=== PATIENT | male | born 1985 | race Caucasian/White ===

== ENCOUNTER 2023-02-02 10:56 | Inpatient (IN) | payer MEDICAID ==
[~2023-02-02] VITALS: Ht 175.3 cm; Wt 88.9 kg
[2023-02-02 11:41] LABS: BASOPHILS # (AUTO) 0.1 X10'3 (0-0.2); BASOPHILS % (AUTO) 0.6 % (0-1); EOSINOPHILS # (AUTO) 0.1 X10'3 (0-0.9); EOSINOPHILS % (AUTO) 0.4 % (0-6); HEMATOCRIT 43.2 % (42.0-52.0); HEMOGLOBIN 14.7 g/dl (14.0-17.9); LYMPHOCYTES # (AUTO) 1.3 X10'3 (1.1-4.8); LYMPHOCYTES % (AUTO) 8.8 % (21-51); MEAN CORPUSCULAR HEMOGLOBIN 31.8 PG (27.0-31.0); MEAN CORPUSCULAR VOLUME 93.6 FL (78-98); MEAN PLATELET VOLUME 6.9 FL (7.4-10.4); MONOCYTES # (AUTO) 0.7 X10'3 (0-0.9); MONOCYTES % (AUTO) 4.8 % (2-12); NEUTROPHILS # (AUTO) 12.1 X10'3 (1.8-7.7); NEUTROPHILS % (AUTO) 85.4 % (42-75); PLATELET COUNT 486 X10'3 (140-440); RED BLOOD COUNT 4.62 X10'6 (4.70-6.10); RED CELL DISTRIBUTION WIDTH 13.5 % (11.5-14.5); WHITE BLOOD COUNT 14.2 X10'3 (4.5-11.0)
[2023-02-02 11:53] LABS: ALANINE AMINOTRANSFERASE 90 U/L (12-78); ALBUMIN 4.5 G/DL (3.4-5.0); ALBUMIN/GLOBULIN RATIO 1.2 (1.1-1.5); ALKALINE PHOSPHATASE 63 IU/L (46-116); ANION GAP 16 (8-16); ASPARTATE AMINO TRANSFERASE 83 U/L (10-37); BILIRUBIN,TOTAL 1.3 MG/DL (0.1-1.0); BLOOD UREA NITROGEN 13 MG/DL (7-18); BUN/CREATININE RATIO 9.4 (10.0-20.0); CALCIUM 9.7 MG/DL (8.5-10.1); CHLORIDE 97 MMOL/L (99-107); CREATININE 1.39 MG/DL (0.60-1.10); GLUCOSE 144 MG/DL (70-104); POTASSIUM 3.2 MMOL/L (3.5-5.1); SODIUM 134 MMOL/L (135-145); TOTAL CARBON DIOXIDE 21.4 MMOL/L (24-32); TOTAL PROTEIN 8.3 G/DL (6.4-8.2); eGFR 57 ML/MIN
[2023-02-02] MEDS ORDERED: potassium Cl 20 mEq SR tablet PO STA (11:54)
[2023-02-02] MEDS ORDERED: magnesium Cl slow-release 64mg tablet PO STA (11:54)
[2023-02-02 12:00] LABS: ETHANOL < 0.010 GM/DL (0.0-0.010)
[2023-02-02 12:05] LABS: LARGE PLATELETS FEW; PLATELET ESTIMATE INCREASED; TOTAL CELLS COUNTED 100
--- NOTE | 2023-02-02 12:16 | NUR ---
Patient brought over to bed 25 from main ER. Patient appears to be in excruciating pain in his chest and back and cannot stand with much suffering and groaning. Provider to come over and medically clear patient. Patient reports that he is on meth and that there are other solar systems that are controlling him. Given a warm blanket and diet was ordered.
--- NOTE | 2023-02-02 13:16 | NUR ---
Patient reports that he is from [place] and gets his medications from [facility]. Telephone call placed and med rec completed. Patient keeps yelling out. Patient reports that there is something living inside him that is controlling him. Patient is begging God to kill him. Gets up and he is unpredictable. Called for security standby and Dr. Michelle to see patient.
[2023-02-02] MEDS ORDERED: LORazepam 2 mg/ml vial IM ONE (13:25)
[2023-02-02] MEDS ORDERED: haloperidol decanoate***LONG-ACTING*** 100mg/ml **IM only** inj. IM ONE (13:25)
[2023-02-02] MEDS ORDERED: diphenhydrAMINE 50 mg/ml inj IM ONE (13:25)
[2023-02-02] MEDS ORDERED: haloperidol lactate 5mg/ml inj ONE (13:35)
--- NOTE | 2023-02-02 13:53 | NUR ---
Security and physician at bedside. Patient was given Ativan 2 mg, Benadryl 50 mg and Haldol 10 mg IM. Patient sleeping prone in bed. No urine specimen as of yet.
--- NOTE | 2023-02-02 15:43 | NUR ---
Patient is sleeping on his right side, respirations are even and nonlabored.
[2023-02-02] MEDS ORDERED: HYDROcodone/acetaminophen 10/325mg tab PO ONE (17:25)
--- NOTE | 2023-02-02 17:31 | NUR ---
Patient was taken to x-ray via w/c and security as escort. Patient awakened and is yelling out in pain. Patient states that he cannot open his eyes and is bumping into things and people. Requested urine sample from patient several times and he has not been able to provide it at this point. Obtained order for Kane, but it is not to be administered until urine has been obtained.
--- NOTE | 2023-02-02 17:52 | NUR ---
Patient back from x-ray. Patient is unable to give a urine sample. Gave him a urinal and he put water in it and was drinking from it. Patient states that he cannot give sample at this time, sent GELY Lee in to try and get patient to void, unsuccessful.
--- NOTE | 2023-02-02 18:10 | NUR ---
The patient is up periodically wandering around in a very disorganized manner. He is accepting redirection. He has been trying to get a urine sample. He went into the bathroom with a urinal and filled it up with water.
[2023-02-02] MEDS ORDERED: OLANZapine 5mg rapidly disint. tablet PO ONE (18:40)
[2023-02-02] MEDS: lithium carbonate 150mg capsule PO SCH (19:10)
[2023-02-02] MEDS: risperiDONE 2mg tablet PO SCH (19:10)
--- NOTE | 2023-02-02 21:00 | NUR ---
The patient appears to be sleeping
--- NOTE | 2023-02-02 22:03 | NUR ---
The patient appears to be sleeping.
--- NOTE | 2023-02-03 00:12 | NUR ---
The patient appears to be sleeping
--- NOTE | 2023-02-03 01:02 | NUR ---
The patient appears to be sleeping
--- NOTE | 2023-02-03 03:09 | NUR ---
The patient appears to be sleeping
--- NOTE | 2023-02-03 05:06 | NUR ---
The patient appears to be sleeping
--- NOTE | 2023-02-03 06:32 | NUR ---
Patient sleeping in bed. Respirations are even and nonlabored. Awaiting patient to awaken for urine sample.
--- NOTE | 2023-02-03 06:45 | NUR ---
Patient up to the restroom, but is still disorganized and cannot provide a urine sample. Will continue to prompt.
--- NOTE | 2023-02-03 07:20 | NUR ---
Patient was able to provide urine sample.
[2023-02-03 07:50] LABS: CLARITY,URINE CLEAR (Clear); COLOR,URINE YELLOW (Yellow); GLUCOSE, URINE NEGATIVE (Neg); KETONES,URINE NEGATIVE (Neg); LEUKOCYTE ESTERASE ,URINE NEGATIVE (Neg); NITRITES, URINE NEGATIVE (Neg); OCCULT BLOOD,URINE NEGATIVE (Neg); PH,URINE 6.5 (4.8-8.0); PROTEIN,URINE NEGATIVE (Neg); UROBILINOGEN,URINE 0.2 E.U/dL (0.2-1.0)
[2023-02-03 07:51] LABS: UA COLLECTION TYPE CLN CATCH MIDSTREAM
--- NOTE | 2023-02-03 08:07 | NUR ---
Per RN patient states he has [place] M/devin, this proposal writer informed clinincal airplane pilot supervisor that [facility] will need to have a Short [place] in place before patient is broguth to [facility] unit.
[2023-02-03 08:13] LABS: URINE AMPHETAMINE SCREEN POSITIVE (Neg); URINE BARBITUATE SCREEN NEGATIVE (Neg); URINE BENZODIAZEPINES SCREEN NEGATIVE (Neg); URINE CANNABINOID SCREEN POSITIVE (Neg); URINE COCAINE SCREEN NEGATIVE (Neg); URINE METHADONE SCREEN NEGATIVE (Neg); URINE OPIATE SCREEN POSITIVE (Neg); URINE PHENCYCLIDINE SCREEN NEGATIVE (Neg)
[2023-02-03] MEDS ORDERED: acetaminophen 325mg tablet PO ONE (08:15)
[2023-02-03] MEDS: risperiDONE 2mg tablet PO SCH ×2 (08:27→21:03)
[2023-02-03] MEDS: sertraline 50mg tablet PO SCH (08:28)
[2023-02-03] MEDS: lithium carbonate 150mg capsule PO SCH ×2 (08:40→21:02)
--- NOTE | 2023-02-03 09:09 | NUR ---
Patient stated that he wanted to talk to his mother and a phone call was placed to her. Patient gave verbal permission to speak to his mother about his healthcare. Patient's mom's ph. # [phone]. She explained that patient escaped from a rehab. came home and took off. Parent is very concerned for his safety. Mom states that he has been shooting meth for the last two months. They are very agreeable to have him held in [facility] as he is bipolar.
--- NOTE | 2023-02-03 10:45 | NUR ---
[facility] here to evaluate patient.
--- NOTE | 2023-02-03 12:20 | NUR ---
Patient up to the restroom.
--- NOTE | 2023-02-03 13:55 | NUR ---
Patient is sleeping supine in bed. Respirations are even and nonlabored.
--- NOTE | 2023-02-03 14:39 | NUR ---
Per [facility], patient has been accepted at [facility].
[2023-02-03] MEDS ORDERED: acetaminophen 325mg tablet PO PRN (15:40)
[2023-02-03] MEDS ORDERED: magnesium hydroxide 30ml (MOM) UD suspension PO PRN (15:40)
[2023-02-03] MEDS ORDERED: loperamide 2mg capsule PO PRN (15:40)
[2023-02-03] MEDS ORDERED: mag hydrox/Alum hydrox/simeth 30ml oral suspension PO PRN (15:40)
--- NOTE | 2023-02-03 15:48 | NUR ---
Patient transported to [facility] via W/C by EVA Dickerson and security. Patient is compliant with treatment.
[2023-02-03 16:06] VITALS: BP 111/60; PULSE 96; RESP 16; TEMP 97; O2SAT 94
[2023-02-03] MEDS: acetaminophen 325mg tablet PO PRN (16:18)
--- NOTE | 2023-02-03 16:18 | NUR ---
Admit note: Pt admitted to [facility] today on 5150 for DTS from our ER at 1525. Pt jumped off a bridge with the intention to kill himself. Pt reports he has a demon inside of him that makes him do things. He stated that he's at his wits end and wants to kill himself. Unable to develop viable plan for safety. Pt has history of schizophrenia, Bipolar, anxiety. Addendum: 02/03/23 at 1711 by Mariah Ibarra RN This underwriter solicitation director attempted to complete admission assessments with pt., however pt. presents as very fatigued (not opening his eyes) and he is a poor historian. Pt. scores as a high risk on the [place] Suicide Risk Assessment, but is able to contract for safety while on the unit. This was endorsed to Dr. Varela and Q 15min safety checks were ordered. Pt. was administered PRN Tylenol for chronic back pain with effectiveness. He has some scratches present on his bilateral arms and legs, however areas are scabbed over and appear to be healing well.
[2023-02-03 16:21] VITALS: RESP 16; O2SAT 94
[2023-02-03] MEDS ORDERED: NICOTINE POLACRILEX 2 MG LOZENGE BC PRN (16:35)
--- NOTE | 2023-02-03 17:31 | NUR ---
Pt . suddenly awoke and ambulated to the nurse's station without difficulty. He began demanding pain medication and when provided education by this greeting card writer that he had just received Tylenol stated in an agitated manner, "No! I mean pain medication!" This greeting card writer offered pt. a warm blanket or an ice pack, however he refused and irritably returned to his room. Will endorse to Noc shift and continue to monitor closely.
[2023-02-03 19:00] VITALS: BP 90/43; PULSE 73; RESP 16; TEMP 98.4; O2SAT 94
[2023-02-03 21:34] VITALS: BP 122/56
--- NOTE | 2023-02-04 03:51 | NUR ---
Nursing Progress Note: Problem: Pt admitted to [facility] for [facility] today on 5150 for DTS from our ER at 1525. Pt jumped off a bridge with the intention to kill himself. Pt reports he has a demon inside of him that makes him do things. He stated that he's at his wits end and wants to kill himself. Unable to develop viable plan for safety. Pt has history of schizophrenia, Bipolar, anxiety. Interventions: 1:1 assessment, therapeutic conversation, active listening, ensured contract for safety, medication administration/education/monitoring, provided distraction redirection, positive reinforcement, and Q15 minute safety checks. Response: Received patient sleeping in his room at shift change. 1:1 completed at bedside. Patient states he is tired and wants to know when he will be discharging. Patient reports his back hurts and it is hard for him to move in bed. Patient denies SI and HI. Patient denies A/V hallucinations. Patient states I am just tired and want to sleep. Patient was med compliant and no PRNs were needed on this. Patient isolated in his room most of this shift. Patient was noted sleeping with no apparent signs of distress. Plan: Establish plan for discharge and stabilize medications
[2023-02-04 07:00] VITALS: RESP 16; O2SAT 96
[2023-02-04] MEDS: risperiDONE 0.5mg tablet PO SCH ×2 (07:34→20:47)
[2023-02-04] MEDS: lithium carbonate 150mg capsule PO SCH ×2 (07:34→20:45)
[2023-02-04] MEDS: sertraline 50mg tablet PO SCH (07:34)
[2023-02-04] MEDS: acetaminophen 325mg tablet PO PRN (07:35)
[2023-02-04] MEDS: nicotine 14mg patch - 24hr TD SCH (07:35)
[2023-02-04 07:46] LABS: HEMOGLOBIN A1C 5.1 % (4.5-6.2)
[2023-02-04 08:00] VITALS: BP 115/71; PULSE 85; RESP 16; TEMP 99.4; O2SAT 96
[2023-02-04 08:18] LABS: CHOL/HDL RATIO 3.6 (0.00-4.99); CHOLESTEROL 206 MG/DL (0-200); HDL CHOLESTEROL 57 MG/DL (35-60); LDL CHOLESTEROL 122 MG/DL (50-100); TRIGLYCERIDES 96 MG/DL (20-135)
[2023-02-04] MEDS ORDERED: traMADol 50MG tablet PO PRN (09:35)
[2023-02-04] MEDS ORDERED: NICO-630 TOP (10:43)
[2023-02-04] MEDS ORDERED: SERT-434 PO (10:43)
[2023-02-04] MEDS ORDERED: RISP1TAB98 PO (10:43)
[2023-02-04] MEDS ORDERED: LITH150C8 PO (10:43)
[2023-02-04] MEDS: traMADol 50MG tablet PO PRN ×2 (13:07→20:47)
--- NOTE | 2023-02-04 15:55 | NUR ---
Nursing Progress Note: Problem : Pt admitted to [facility] for [facility] today on 5150 for DTS from our ER at 1525. Pt jumped off a bridge with the intention to kill himself. Pt reports he has a demon inside of him that makes him do things. He stated that he's at his wits end and wants to kill himself. Unable to develop viable plan for safety. Pt has history of schizophrenia, Bipolar, anxiety. Interventions : Maintained a safe and supportive environment, ensured contract for safety, provided clear and simple instructions, attempted to orient to reality, provided active listening and positive encouragement, monitored pain and need for intervention, and maintained Q 15min safety checks. Response : Received pt. sleeping in bed at the beginning of the shift, he was awoken to attend breakfast in the Group Room and afterwards ambulated to the nurse's station without difficulty to use the telephone. Pt. made a telephone call to his mother with help form staff, and spoke to her while pacing the hallway. This conversation appeared to be somewhat bizarre as pt. requested in a somewhat urgent manner that his mother transfer the food from his refrigerator to his freezer. After this conversation, pt. began making what appeared to be exaggerated noises, "Ouch, ouch, ouch," and requested PRN pain medication. Tylenol was administered with effectiveness and pt. returned back to bed. 1:1 was completed at bedside, pt. presents as cooperative, fatigued, guarded, and isolative. He denies any S/I, H/I, or A/V/ELIZABETH and does not appear to be be responding to internal stimuli. Pt. does endorse what appear to be paranoid delusions that others want to hurt him. He stated, "I've been through a long torment, things are against me. That's part of the reason I tried to kill myself because I thought I was a horrible person. Now I want to just do what I need to do to get better." This marketing copywriter provided active listening and positive encouragement and pt. reported contentment. Pt. remained in bed sleeping throughout much of the shift, getting up only to attend meals. Later, in the afternoon, he awoke again reporting chronic back pain. This marketing copywriter obtained an order for PRN Ultram from Dr. Varela and this medication was administered with effectiveness, will continue to monitor pt. closely. Plan : Pt. requires interruption of current crisis, medication adjustments and a safe and supportive environment. Addendum: 02/04/23 at 1642 by Mariah Ibarra RN Pt. is reporting muscle spasms, this was endorsed to LING Odonnell who gave an order for Zanaflex 4mg Q6 PRN, will administer medication and continue to monitor.
[2023-02-04] MEDS: tizanidine 4mg tablet PO PRN ×2 (16:44→22:37)
[2023-02-04 19:00] VITALS: BP 119/71; PULSE 91; RESP 20; TEMP 99.3; O2SAT 96
--- NOTE | 2023-02-05 02:22 | NUR ---
Nursing Progress Note: Problem : Pt admitted to [facility] for [facility] today on 5150 for DTS from our ER at 1525. Pt jumped off a bridge with the intention to kill himself. Pt reports he has a demon inside of him that makes him do things. He stated that he's at his wits end and wants to kill himself. Unable to develop viable plan for safety. Pt has history of schizophrenia, Bipolar, anxiety. Interventions : Maintained a safe and supportive environment, ensured contract for safety, provided clear and simple instructions, attempted to orient to reality, provided active listening and positive encouragement, monitored pain and need for intervention, and maintained Q 15min safety checks. Response : Received pt. in bed at change of shift. Pt. was awaken for night time medications and he took them without issue. He is pleasant and cooperative. No delusional statements were made on this shift. Pt. denies SI/HI/AH/VH. Pt. isolated to his room this shift and slept. PRN's provided this shift; Tramadol and Zanaflex. Nicotine patch removed. Pt. is observed and appears to be sleeping without difficulty. Plan : Pt. requires interruption of current crisis, medication adjustments and a safe and supportive environment.
[2023-02-05 07:00] VITALS: RESP 16; O2SAT 94
[2023-02-05 08:00] VITALS: BP 109/53; PULSE 78; RESP 16; TEMP 98.2; O2SAT 94
[2023-02-05] MEDS: nicotine 14mg patch - 24hr TD SCH (08:22)
[2023-02-05] MEDS: risperiDONE 0.5mg tablet PO SCH ×2 (08:23→20:41)
[2023-02-05] MEDS: lithium carbonate 150mg capsule PO SCH ×2 (08:23→20:41)
[2023-02-05] MEDS: sertraline 50mg tablet PO SCH (08:24)
[2023-02-05] MEDS: traMADol 50MG tablet PO PRN ×2 (08:25→20:42)
--- NOTE | 2023-02-05 16:05 | NUR ---
Nursing Progress Note: Problem : Pt admitted to [facility] for [facility] today on 5150 for DTS from our ER at 1525. Pt jumped off a bridge with the intention to kill himself. Pt reports he has a demon inside of him that makes him do things. He stated that he's at his wits end and wants to kill himself. Unable to develop viable plan for safety. Pt has history of schizophrenia, Bipolar, anxiety. Interventions : Maintained a safe and supportive environment, ensured contract for safety, provided clear and simple instructions, attempted to orient to reality, provided active listening and positive encouragement, monitored pain and need for intervention, and maintained Q 15min safety checks. Response : Received pt. sleeping in bed and in no distress at the beginning of the shift. Pt woke and was cooperative with vitals and returned to sleep until breakfast, which he ate well with others in the community room. Pt took AM meds w/o issue, including Tramadol for back pain. He napped after breakfast. Pt is pleasant and cooperative and appears anxious at times. Pt denies any S/I, H/I, or A/V/ELIZABETH. Pt showered and ate lunch well. Pt is isolative and guarded, yet pleasant and appreciative of staff. Plan : Pt. requires interruption of current crisis, medication adjustments and a safe and supportive environment.
[2023-02-05 16:56] LABS: HBSAG SCREEN Negative (Negative); HEP B CORE AB, TOT Negative (Negative)
[2023-02-05 19:00] VITALS: RESP 16; O2SAT 97
[2023-02-05 19:24] VITALS: BP 124/70; PULSE 81; RESP 16; TEMP 98.9; O2SAT 97
--- NOTE | 2023-02-06 02:07 | NUR ---
Nursing Progress Note: hCris Problem : Pt admitted to [facility] for [facility] today on 5150 for DTS from our ER at 1525. Pt jumped off a bridge with the intention to kill himself. Pt reports he has a demon inside of him that makes him do things. He stated that he's at his wits end and wants to kill himself. Unable to develop viable plan for safety. Pt has history of schizophrenia, Bipolar, anxiety. Interventions : Maintained a safe and supportive environment, ensured contract for safety, provided clear and simple instructions, attempted to orient to reality, provided active listening and positive encouragement, monitored pain and need for intervention, and maintained Q 15min safety checks. Response : Received pt. watching TV in the community room with peers at change of shift. He is pleasant and cooperative. Pt. participated in evening snack and continued watching TV. Pt. later came out and asked for a warm blanket and went to his room. Pt. is medication compliant. PRN tramadol was provided for back pain of 7/10 this shift. Pt. reports feeling alot better today and his mind feels clearer thanks to the medication he is taking. He also reports that he does much better when he's sober and taking his medications. Pt. denies SI/HI/AH/VH. Nicotine patch removed. Plan : Pt. requires interruption of current crisis, medication adjustments and a safe and supportive environment.
[2023-02-06 07:00] VITALS: RESP 18; O2SAT 94
[2023-02-06 07:21] VITALS: BP 115/69; PULSE 82; RESP 18; TEMP 99; O2SAT 94
[2023-02-06] MEDS: sertraline 50mg tablet PO SCH (08:12)
[2023-02-06] MEDS: lithium carbonate 150mg capsule PO SCH ×2 (08:13→20:36)
[2023-02-06] MEDS: risperiDONE 0.5mg tablet PO SCH ×2 (08:13→20:36)
[2023-02-06] MEDS: nicotine 14mg patch - 24hr TD SCH (08:18)
--- NOTE | 2023-02-06 15:52 | NUR ---
Nursing Progress Note: Problem : Pt admitted to [facility] for [facility] today on 5150 for DTS from our ER at 1525. Pt jumped off a bridge with the intention to kill himself. Pt reports he has a demon inside of him that makes him do things. He stated that he's at his wits end and wants to kill himself. Unable to develop viable plan for safety. Pt has history of schizophrenia, Bipolar, anxiety. Interventions : Maintained a safe and supportive environment, ensured contract for safety, provided clear and simple instructions, attempted to orient to reality, provided active listening and positive encouragement, monitored pain and need for intervention, and maintained Q 15min safety checks. Response : Pt asleep at change of shift. Met with RN for 1:1 assessment at the bedside after meeting with Provider. Presents friendly, cooperative, fatigued. States that he just met with Melodie after waking and felt very confused, and is still having some trouble with his thinking. Denies SI/HI/AH/VH. States Im just not a good person when Im using and states that he is feeling hopeful about his future and ready for rehab. Compliant with medications and denies AEs; none observed. Spent much of the day in bed, but was up for meals and snacks. Plan : Changed to 5250 status today d/t impulsive and erratic behaviors. Medications are being titrated
[2023-02-06 19:00] VITALS: RESP 16; O2SAT 96
[2023-02-06 19:53] VITALS: BP 124/73; PULSE 79; RESP 16; TEMP 98.9; O2SAT 96
--- NOTE | 2023-02-07 01:44 | NUR ---
Nursing Progress Note: Problem : Pt admitted to [facility] for [facility] today on 5150 for DTS from our ER at 1525. Pt jumped off a bridge with the intention to kill himself. Pt reports he has a demon inside of him that makes him do things. He stated that he's at his wits end and wants to kill himself. Unable to develop viable plan for safety. Pt has history of schizophrenia, Bipolar, anxiety. Interventions : Maintained a safe and supportive environment, ensured contract for safety, provided clear and simple instructions, attempted to orient to reality, provided active listening and positive encouragement, monitored pain and need for intervention, and maintained Q 15min safety checks. Response : Pt. sitting in community room socializing with a female peer and staff at change of shift. Pt. used the nail clippers this evening and monitored by staff. He is pleasant, cooperative and friendly with others on the unit. Later, he was observed standing in the daniels, smiling and socializing with a male peer and appeared to be in a good mood. He participated in evening snack and spent most of his night in the community room watching TV. He is medication compliant. Reports that he is coming to terms with everything and wants to keep moving forward and staying positive. Pt. reports discomfort to his right side . Nicotine patch removed. Plan : Changed to 5250 status today d/t impulsive and erratic behaviors. Medications are being titrated
[2023-02-07 07:00] VITALS: RESP 14; O2SAT 95
[2023-02-07 07:24] VITALS: BP 112/65; PULSE 72; RESP 14; TEMP 98; O2SAT 95
[2023-02-07 08:08] LABS: EOSINOPHILS # (AUTO) 0.2 X10'3 (0-0.9); HEMOGLOBIN 11.2 g/dl (14.0-17.9); MONOCYTES # (AUTO) 0.5 X10'3 (0-0.9)
[2023-02-07 08:10] LABS: BASOPHILS # (AUTO) 0.1 X10'3 (0-0.2); BASOPHILS % (AUTO) 1.3 % (0-1); EOSINOPHILS % (AUTO) 2.6 % (0-6); LYMPHOCYTES % (AUTO) 28.2 % (21-51); MEAN CORPUSCULAR HEMOGLOBIN 32.4 PG (27.0-31.0); MEAN CORPUSCULAR VOLUME 95.2 FL (78-98); MEAN PLATELET VOLUME 6.8 FL (7.4-10.4); MONOCYTES % (AUTO) 7.1 % (2-12); NEUTROPHILS # (AUTO) 4.4 X10'3 (1.8-7.7); NEUTROPHILS % (AUTO) 60.8 % (42-75); PLATELET COUNT 352 X10'3 (140-440); RED BLOOD COUNT 3.47 X10'6 (4.70-6.10); RED CELL DISTRIBUTION WIDTH 13.2 % (11.5-14.5); WHITE BLOOD COUNT 7.2 X10'3 (4.5-11.0)
[2023-02-07] MEDS: risperiDONE 0.5mg tablet PO SCH ×2 (08:25→20:20)
[2023-02-07] MEDS: sertraline 50mg tablet PO SCH (08:26)
[2023-02-07] MEDS: nicotine 14mg patch - 24hr TD SCH (08:26)
[2023-02-07] MEDS: lithium carbonate 150mg capsule PO SCH ×2 (08:26→20:20)
[2023-02-07 08:32] LABS: ALANINE AMINOTRANSFERASE 31 U/L (12-78); ALBUMIN 3.2 G/DL (3.4-5.0); ALKALINE PHOSPHATASE 52 IU/L (46-116); ANION GAP 5 (8-16); ASPARTATE AMINO TRANSFERASE 18 U/L (10-37); BILIRUBIN,TOTAL 0.5 MG/DL (0.1-1.0); BLOOD UREA NITROGEN 16 MG/DL (7-18); BUN/CREATININE RATIO 14.3 (10.0-20.0); CHLORIDE 106 MMOL/L (99-107); CREATININE 1.12 MG/DL (0.60-1.10); GLUCOSE 102 MG/DL (70-104); MAGNESIUM 2.1 MG/DL (1.5-2.4); POTASSIUM 4.4 MMOL/L (3.5-5.1); SODIUM 141 MMOL/L (135-145); TOTAL CARBON DIOXIDE 30.2 MMOL/L (24-32); TOTAL PROTEIN 6.5 G/DL (6.4-8.2); eGFR 73 ML/MIN
[2023-02-07] MEDS: traMADol 50MG tablet PO PRN ×2 (08:36→22:39)
--- NOTE | 2023-02-07 13:33 | NUR ---
5250 [place] FOR DTS
--- NOTE | 2023-02-07 15:18 | NUR ---
VEHICLE INFORMATION 's car was towed to [facility] in [place] (# [phone]). was informed of this. RACHNA Ramirez
--- NOTE | 2023-02-07 15:57 | NUR ---
Nursing Progress Note: Problem : Pt admitted to [facility] for [facility] on 5150 for DTS from our ER. Pt jumped off a bridge with the intention to kill himself. Pt reports he has a demon inside of him that makes him do things. He stated that he's at his wits end and wants to kill himself. Unable to develop viable plan for safety. Pt has history of schizophrenia, Bipolar, anxiety. Interventions : Maintained a safe and supportive environment, ensured contract for safety, provided clear and simple instructions, attempted to orient to reality, provided active listening and positive encouragement, monitored pain and need for intervention, and maintained Q 15min safety checks. Response : Pt asleep at change of shift. Met with RN for 1:1 assessment at the bedside after breakfast. Presents friendly and cooperative. States that he still feels a little foggy in the AM, I think my head is just getting used to getting sleep and getting used to the medications. Denies SI/HI/AV/VH. Thoughts are linear and goal-directed. He continues to talk about being motivated for rehab and hopeful for his future. Pt participated in the milieu this shift. Plan : Medications are being titrated
[2023-02-07 18:48] VITALS: RESP 14; O2SAT 95
[2023-02-07 20:35] VITALS: BP 127/69; PULSE 74; RESP 16; TEMP 98.1; O2SAT 98
--- NOTE | 2023-02-07 23:31 | NUR ---
Nursing Progress Note: Problem : Pt admitted to [facility] for [facility] on 5150 for DTS from our ER. Pt jumped off a bridge with the intention to kill himself. Pt reports he has a demon inside of him that makes him do things. He stated that he's at his wits end and wants to kill himself. Unable to develop viable plan for safety. Pt has history of schizophrenia, Bipolar, anxiety. Interventions : Maintained a safe and supportive environment, ensured contract for safety, provided clear and simple instructions, attempted to orient to reality, provided active listening and positive encouragement, monitored pain and need for intervention, and maintained Q 15min safety checks. Response : Pt was socializing in the group room at change of shift. Pt is pleasant and cooperative, denies SI/ and A/VH. Pt is future oriented with goal of attending rehab. Pt reports feeling cold and would like a "hoodie" to wear but opted for a warm blanket. Pt had snacks in the group room, spent time watching tv and took HS meds. Pt c/o of pain in his right side, "It's ok when Im sitting still, but moving it really hurts. Pt was provided with PRN tramadol. Plan : Medications are being titrated
[2023-02-08 07:00] VITALS: BP 110/65; PULSE 69; RESP 13; TEMP 97.8; O2SAT 96
[2023-02-08] MEDS: lithium carbonate 150mg capsule PO SCH ×2 (08:33→20:29)
[2023-02-08] MEDS: risperiDONE 0.5mg tablet PO SCH (08:34)
[2023-02-08] MEDS: nicotine 14mg patch - 24hr TD SCH (08:34)
[2023-02-08] MEDS: sertraline 50mg tablet PO SCH (08:34)
--- NOTE | 2023-02-08 08:46 | NUR ---
Initial: Pt admit for bipolar disorder with SI. Currently on a regular diet and eating well, documented with mostly 100% PO intake of meals meeting estimated nutrient needs. LBM 02/06 per EMR. PRN bowel care available. No nutrition intervention warranted at this time. Will continue to follow and make recommendations as appropriate. Recommendations: 1) Continue regular diet 2) Bowel care PRN 3) Weekly scaled weights Addendum: 02/08/23 at [address] Amended: Links added.
[2023-02-08] MEDS: traMADol 50MG tablet PO PRN ×2 (11:21→19:58)
--- NOTE | 2023-02-08 15:16 | NUR ---
DISCHARGE PLANNING Spoke to the following regarding a discharge plan: Step-father: Patrice-ph# [phone] Nuria-therapist with [facility]-ph# [phone]-ext [phone] [facility]/detox in [place], [place]-ph# [phone] Felisa Slime with [facility]-[place]# [phone] Kash Reddy with [facility]-[place]# [phone] Faxed [facility] to [facility]. [facility] a residential in-patient program in [place], [place]. will need to do an assessment to see if he meets criteria. Kash beck/[facility] is going to call clinical social work therapist back after speaking to Dr becerra about 's situation. RACHNA Ramirez
--- NOTE | 2023-02-08 18:01 | NUR ---
Nursing Progress Note: Problem : Pt admitted to [facility] for [facility] on 5150 for DTS from our ER. Pt jumped off a bridge with the intention to kill himself. Pt reports he has a demon inside of him that makes him do things. He stated that he's at his wits end and wants to kill himself. Unable to develop viable plan for safety. Pt has history of schizophrenia, Bipolar, anxiety. Interventions : Maintained a safe and supportive environment, ensured contract for safety, provided clear and simple instructions, attempted to orient to reality, provided active listening and positive encouragement, monitored pain and need for intervention, and maintained Q 15min safety checks. Response : Received patient sleeping in bed at shift change. Patient awakens and attends breakfast in the community room. Patient is tired and goes back to bed after breakfast. 1:1 performed at bedside, patient denies AVH, SI/HI. Patient has a positive outlook on going to rehabilitation to get his life back. Patient has been compliant with medications and care. Patient smiling while talking with staff in an upbeat mood. Patient is linear. Patient would like double portions, will leave it up to provider to decide. Plan : Medications are being titrated
[2023-02-08 19:00] VITALS: RESP 16; O2SAT 100
[2023-02-08 20:00] VITALS: BP 111/63; PULSE 71; RESP 16; TEMP 98.1; O2SAT 100
--- NOTE | 2023-02-09 01:22 | NUR ---
Nursing Progress Note: Problem : Pt admitted to [facility] for [facility] on 5150 for DTS from our ER. Pt jumped off a bridge with the intention to kill himself. Pt reports he has a demon inside of him that makes him do things. He stated that he's at his wits end and wants to kill himself. Unable to develop viable plan for safety. Pt has history of schizophrenia, Bipolar, anxiety. Interventions : Maintained a safe and supportive environment, ensured contract for safety, provided clear and simple instructions, attempted to orient to reality, provided active listening and positive encouragement, monitored pain and need for intervention, and maintained Q 15min safety checks. Response : Received pt. socializing with peers in the community room at change of shift. Pt. is observed smiling and laughing. He is pleasant and cooperative with care. Later in the shift pt. came to this designer/writer and c/o 7/10 pain to right side and then asked for tramadol. PRN tramadol was provided to pt. He denies SI/HI/AH/VH. After showering, pt. spent the the rest of the evening playing cards, watching TV, and socializing with peers and staff in the community room. He is medication compliant. Nicotine patch removed. Patient would like double portions, will leave it up to provider to decide. Plan : Medications are being titrated Addendum: 02/09/23 at 0441 by Yolette Alex RN TERESA documentation: I have reviewed and agree with all interventions, assessments performed and documented by Lina MOORE.
[2023-02-09 07:00] VITALS: RESP 18; O2SAT 95
[2023-02-09 08:00] VITALS: BP 101/65; PULSE 64; RESP 18; TEMP 97; O2SAT 95
[2023-02-09] MEDS ORDERED: risperiDONE 0.5mg tablet PO SCH (08:00)
[2023-02-09] MEDS: lithium carbonate 150mg capsule PO SCH ×2 (09:05→22:00)
[2023-02-09] MEDS: sertraline 50mg tablet PO SCH (09:05)
[2023-02-09] MEDS: nicotine 14mg patch - 24hr TD SCH (09:06)
[2023-02-09] MEDS: traMADol 50MG tablet PO PRN ×2 (09:45→22:29)
--- NOTE | 2023-02-09 14:29 | NUR ---
Spoke to Kash Reddy at [facility] (ph# [phone]) who reported they do not have any beds currently. He did schedule an intake appointment for 02/21/23 at 9 AM. RACHNA Ramirez
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
[2023-02-09] MEDS ORDERED: traMADol 50MG tablet PO PRN (18:15)
[2023-02-09 19:00] VITALS: RESP 16; O2SAT 96
[2023-02-09 20:00] VITALS: BP 116/71; PULSE 80; RESP 16; TEMP 97.3; O2SAT 96
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
[2023-02-10 07:00] VITALS: RESP 16; O2SAT 96
[2023-02-10 08:00] VITALS: BP 110/65; PULSE 70; RESP 16; TEMP 98; O2SAT 96
[2023-02-10] MEDS: nicotine 14mg patch - 24hr TD SCH (08:50)
[2023-02-10] MEDS: lithium carbonate 150mg capsule PO SCH ×2 (08:50→21:08)
[2023-02-10] MEDS: sertraline 50mg tablet PO SCH (08:50)
[2023-02-10] MEDS ORDERED: LITH150C8 PO (14:10)
[2023-02-10] MEDS ORDERED: SERT-434 PO (14:10)
[2023-02-10] MEDS ORDERED: NICO-631 TD (14:10)
[2023-02-10] MEDS ORDERED: NICO-907 BC (14:10)
[2023-02-10 16:02] LABS: CLARITY,URINE CLEAR (Clear); COLOR,URINE STRAW (Yellow); GLUCOSE, URINE NEGATIVE (Neg); KETONES,URINE NEGATIVE (Neg); LEUKOCYTE ESTERASE ,URINE NEGATIVE (Neg); NITRITES, URINE NEGATIVE (Neg); OCCULT BLOOD,URINE TRACE-INTACT (Neg); PH,URINE 6.5 (4.8-8.0); PROTEIN,URINE NEGATIVE (Neg); UROBILINOGEN,URINE 0.2 E.U/dL (0.2-1.0)
[2023-02-10 16:11] LABS: UA COLLECTION TYPE CLN CATCH MIDSTREAM
[2023-02-10 16:12] LABS: BACTERIA,URINE FEW /HPF (Neg); RBC,URINE 0-2 /HPF (0-2); SQUAMOUS EPITHELIAL CELL,UR FEW /LPF (FEW); WBC,URINE 0-4 /HPF (0-4)
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
[2023-02-10 19:00] VITALS: RESP 14; O2SAT 96
[2023-02-10 20:00] VITALS: BP 112/67; PULSE 68; RESP 14; TEMP 96.6; O2SAT 96
[2023-02-10] MEDS: Melatonin 3mg tablet PO SCH (21:07)
--- NOTE | 2023-02-11 05:00 | NUR ---
Nursing Progress Note: Problem : Pt admitted to [facility] for [facility] today on 5150 for DTS from our ER at 1525. Pt jumped off a bridge with the intention to kill himself. Pt reports he has a demon inside of him that makes him do things. He stated that he's at his wits end and wants to kill himself. Unable to develop viable plan for safety. Pt has history of schizophrenia, Bipolar, anxiety. Interventions : Maintained a safe and supportive environment, ensured contract for safety, provided clear and simple instructions, provided active listening and positive encouragement, monitored pain and need for intervention, and maintained Q 15min safety checks. Response : Pt received in recreation room. Pt interacts socially with peers and engages in watching television. He is assisting roommate with finding housing resources. Pt is compliant with all medication. Pt requested sleep aid from provider. ordered Melatonin 3mg x 3 tabs for insomnia. Pt agreeable. Medication is effective. Pt appears mildly depressed but future oriented during shift. Pt participated in snack. Pt aware he will be discharging soon as per his report. Plan : Pt. requires medication adjustments and a safe and supportive environment
[2023-02-11 07:00] VITALS: RESP 16; O2SAT 96
[2023-02-11 08:00] VITALS: BP 108/60; PULSE 67; RESP 16; TEMP 97.9; O2SAT 97
[2023-02-11] MEDS: lithium carbonate 150mg capsule PO SCH ×2 (08:02→21:17)
[2023-02-11] MEDS: sertraline 50mg tablet PO SCH (08:02)
[2023-02-11] MEDS: nicotine 14mg patch - 24hr TD SCH (08:04)
--- NOTE | 2023-02-11 16:08 | NUR ---
Nursing Progress Note: James Problem : Pt admitted to [facility] for [facility] today on 5150 for DTS from our ER at 1525. Pt jumped off a bridge with the intention to kill himself. Pt reports he has a demon inside of him that makes him do things. He stated that he's at his wits end and wants to kill himself. Unable to develop viable plan for safety. Pt has history of schizophrenia, Bipolar, anxiety. Interventions : Maintained a safe and supportive environment, ensured contract for safety, provided clear and simple instructions, provided active listening and positive encouragement, monitored pain and need for intervention, and maintained Q 15min safety checks. Response :Pt. received asleep and awoke for breakfast. Pt. took his medications without hesitation. He denies SI, HI, AH, VH and states Im only suicidal when Im on Meth Pt. presents with good eye contact, open about past Hx of Meth use, and animated during assessment. Current DC plan is to be picked up by his parents and attend a drug rehab in [place]. Pt. interacts with cohorts and is often outspoken and loud. He is cooperative, ate all meals in the community room with cohorts. Pt. has good hygiene, hair is cut short, and wears unit scrubs. Weekly weight: 88.9kg Plan : Pt. continues to require medication adjustments and a safe and supportive environment.
[2023-02-11 19:00] VITALS: RESP 17; O2SAT 96
[2023-02-11 20:00] VITALS: BP 131/75; PULSE 77; RESP 17; TEMP 96.9; O2SAT 96
[2023-02-11] MEDS: Melatonin 3mg tablet PO SCH (21:16)
[2023-02-11] MEDS: risperiDONE 0.5mg tablet PO SCH (21:16)
--- NOTE | 2023-02-12 01:30 | NUR ---
Nursing Progress Note: James Problem: Pt admitted to [facility] for [facility] today on 5150 for DTS from our ER at 1525. Pt jumped off a bridge with the intention to kill himself. Pt reports he has a demon inside of him that makes him do things. He stated that he's at his wits end and wants to kill himself. Unable to develop viable plan for safety. Pt has history of schizophrenia, Bipolar, anxiety. Interventions: Maintained a safe and supportive environment, ensured contract for safety, provided clear and simple instructions, provided active listening and positive encouragement, monitored pain and need for intervention, and maintained Q 15min safety checks. Response: Pt received in day room where he is playing ARTURO with his peers. Pt is social on unit. Pt is pleasant and cooperative. Pt denies SI/HI/VH but endorses AH. The voices are better since Gloria been taking the medication. Pt was talking to his mother and was heard saying I feel like a super hero. Pt is medication compliant and asked if he doesnt want the Melatonin does he have to take it. Knitted Cloth Examiner told pt. that he can refuse it if not needed. Im sleeping alright. Encourage ADLs daily as well as sleep hygiene. Monitor for safety. Plan: Pt. continues to require medication adjustments and a safe and supportive environment.
[2023-02-12 07:00] VITALS: RESP 16; O2SAT 95
[2023-02-12 08:00] VITALS: BP 104/60; PULSE 69; RESP 16; TEMP 96.7; O2SAT 95
[2023-02-12] MEDS: sertraline 50mg tablet PO SCH (08:22)
[2023-02-12] MEDS: lithium carbonate 150mg capsule PO SCH ×2 (08:22→20:24)
[2023-02-12] MEDS: nicotine 14mg patch - 24hr TD SCH (08:30)
--- NOTE | 2023-02-12 14:42 | NUR ---
Nursing Progress Note: Problem : Pt admitted to [facility] for [facility] today on 5150 for DTS from our ER at 1525. Pt jumped off a bridge with the intention to kill himself. Pt reports he has a demon inside of him that makes him do things. He stated that he's at his wits end and wants to kill himself. Unable to develop viable plan for safety. Pt has history of schizophrenia, Bipolar, anxiety. Interventions : Maintained a safe and supportive environment, ensured contract for safety, provided clear and simple instructions, attempted to orient to reality, provided active listening and positive encouragement, monitored pain and need for intervention, and maintained Q 15min safety checks. Response : Received pt. sleeping in bed and in no distress at the beginning of the shift. Pt woke and was cooperative with vitals and returned to sleep. Pt got up for breakfast and took AM meds w/o issue. Pt bright and smiling in pleasant mood, denying SI/HI and A/V/Hs at this time. Pt napped in AM and did calisthenics in afternoon and watched a movie with peers. Pt used exercise bike as well. talked about going to Rehab in [place] with trepidation and fear of how powerful a servomechanism assembler that drugs have on him. Pt denied pain today and did not use PRN pain made as of the writing of this note. Plan : Pt. requires interruption of current crisis, medication adjustments and a safe and supportive environment.
[2023-02-12 19:00] VITALS: BP 124/42; PULSE 75; RESP 16; TEMP 97.7; O2SAT 97
[2023-02-12] MEDS: risperiDONE 0.5mg tablet PO SCH (20:23)
[2023-02-12] MEDS: Melatonin 3mg tablet PO SCH (20:54)
--- NOTE | 2023-02-13 05:01 | NUR ---
Nursing Progress Note: EVA STANFORD Problem : Pt admitted to [facility] for [facility] today on 5150 for DTS from our ER at 1525. Pt jumped off a bridge with the intention to kill himself. Pt reports he has a demon inside of him that makes him do things. He stated that he's at his wits end and wants to kill himself. Unable to develop viable plan for safety. Pt has history of schizophrenia, Bipolar, anxiety. Interventions : Maintained a safe and supportive environment, ensured contract for safety, provided clear and simple instructions, attempted to orient to reality, provided active listening and positive encouragement, monitored pain and need for intervention, and maintained Q 15min safety checks. Response : Report received and patient seen in the dinning room watching TV. He later came out and said hi. He was receptive and asked when his medications will be ready specifically his sleep aid. When asked if he was depressed and thinking of harming himself, patient said no. He took PM meds w/o issue. Pt bright and smiling in pleasant mood at this time. After eating his night snack, patient stayed for a little bit in the dinning room and later went to bed. He slept throughout the night. Plan : Pt. requires interruption of current crisis, medication adjustments and a safe and supportive environment.
[2023-02-13 08:00] VITALS: BP 103/56; PULSE 63; RESP 16; TEMP 97.5; O2SAT 96
[2023-02-13] MEDS: sertraline 50mg tablet PO SCH (08:51)
[2023-02-13] MEDS: lithium carbonate 150mg capsule PO SCH ×2 (08:51→20:16)
[2023-02-13] MEDS: nicotine 14mg patch - 24hr TD SCH (08:52)
[2023-02-13] MEDS: traMADol 50MG tablet PO PRN (12:49)
--- NOTE | 2023-02-13 14:16 | NUR ---
NURSING PROGRESS NOTE Problem : Pt admitted to [facility] today on 5150 for DTS from our ER at 1525. Pt jumped off a bridge with the intention to kill himself. Pt reports he has a demon inside of him that makes him do things. He stated that he's at his wits end and wants to kill himself. Unable to develop viable plan for safety. Pt has history of schizophrenia, Bipolar, anxiety. Interventions : Maintained a safe and supportive environment, ensured contract for safety, provided clear and simple instructions, attempted to orient to reality, provided active listening and positive encouragement, monitored pain and need for intervention, and maintained Q 15min safety checks. Response : Received patient sleeping at shift change. Pt joined his peers in the community room for breakfast then returned to his bed to sleep. Pt reports "sleeping well." Pt denies all psychotic symptoms. Pt is stable and will be discharged tomorrow. Pt is being transported by his parents to a rehab in [place]. Pt is social with peers and visible on the unit. Plan : Patient is stable and being picked up by is parents tomorrow.
[2023-02-13] MEDS ORDERED: RISP1TAB13 PO (14:19)
--- NOTE | 2023-02-13 17:20 | NUR ---
PRESCRIPTIONS ARE ON PRINTED. NEED TO BE SIGNED BY LING PERKINS. PLEASE GIVE TO ROSSANA FOR SIG.
[2023-02-13 19:00] VITALS: RESP 16; O2SAT 99
[2023-02-13 20:07] VITALS: BP 104/68; PULSE 75; RESP 16; TEMP 98.3; O2SAT 99
[2023-02-13] MEDS: risperiDONE 0.5mg tablet PO SCH (20:14)
[2023-02-13] MEDS: Melatonin 3mg tablet PO SCH (20:15)
[2023-02-13] MEDS: acetaminophen 325mg tablet PO PRN (20:53)
--- NOTE | 2023-02-14 03:55 | NUR ---
NURSING PROGRESS NOTE: Problem : Pt admitted to [facility] for [facility] on 5150 for DTS from our ER. Pt attempted suicide by cutting his wrists with a comb. Pt continues to endorse suicidal ideation and states "I will first walk into vehicles and bust my head. Then go to he kitchen and get either a knife or a fork and stab myself." Pt has history of TBI, seizures, bipolar, schizophrenia. Interventions : 1:1 assessment, therapeutic conversation, active listening, medication administration/education/monitoring, provided simple instruction, distraction, redirection, positive reinforcement, Q15 minute safety checks. Response : Received patient sleeping at shift change. Pt woke and joined peers in community room. Pt is pleasant and social with peers and staff. Pt continues to compliant with care an medication. Pt states he has been doing push ups everyday, asking headline writer to add up different numbers. Pt states he is up "48,000 push ups." Pt is encouraged to continue with exercises. Pt visible on unit, pleasant and presents with a bright affect. Pt is very inquisitive asking random questions about meds, games, T.V. different exercises. Pt denies all psychotic symptoms. Plan : Pt. requires medication adjustments, and a safe and supportive environment.
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
[2023-02-14 07:00] VITALS: RESP 16; O2SAT 96
[2023-02-14 08:00] VITALS: BP 104/56; PULSE 68; RESP 16; TEMP 98.3; O2SAT 96
[2023-02-14] MEDS: sertraline 50mg tablet PO SCH (08:13)
[2023-02-14] MEDS: lithium carbonate 150mg capsule PO SCH (08:13)
[2023-02-14] MEDS: nicotine 14mg patch - 24hr TD SCH (08:14)
--- NOTE | 2023-02-14 09:57 | NUR ---
Pt. discharged at approx. 0957 off the unit with his parents. Pt escorted off the unit independently with a steady gait escorted by security and [facility] staff. Patients discharge paperwork reviewed by pt. signed and understood. Pt. hard copy prescriptions placed in patient discharge paperwork. Pt. personal belongings inventoried and returned to pt. Pt was happy to be discharging and looking forward to attending rehab.
== END 2023-02-14 09:57 | disposition home or self-care (01) | DRG 753 ==
LOC: ER 10:57 → ADULT MH 02-03 14:20
PROVIDERS: ADMIT Psychiatry & Neurology Psychiatry; ATTEND Psychiatry & Neurology Psychiatry
DX: F31.30 Bipolar disorder, current episode depressed, mild or moderate severity, unspecified (principal); E87.1 Hypo-osmolality and hyponatremia; Z20.822 Contact with and (suspected) exposure to COVID-19; D72.829 Elevated white blood cell count, unspecified; Z91.148 Patient's other noncompliance with medication regimen for other reason; F15.10 Other stimulant abuse, uncomplicated; F41.9 Anxiety disorder, unspecified; E87.6 Hypokalemia; N28.9 Disorder of kidney and ureter, unspecified; M54.9 Dorsalgia, unspecified; R10.9 Unspecified abdominal pain; F29 Unspecified psychosis not due to a substance or known physiological condition; F17.210 Nicotine dependence, cigarettes, uncomplicated; F20.9 Schizophrenia, unspecified; Z81.8 Family history of other mental and behavioral disorders; Z91.199 Patient's noncompliance with other medical treatment and regimen due to unspecified reason; Z88.8 Allergy status to other drugs, medicaments and biological substances; X83.8XXA Intentional self-harm by other specified means, initial encounter; Z79.899 Other long term (current) drug therapy; Z90.49 Acquired absence of other specified parts of digestive tract; Z71.6 Tobacco abuse counseling
CPT/HCPCS: 36415; 72040; 72070; 72100; 80053; 80061; 80305; 80320; 81001; 81003; 83036; 83735; 84443; 85007; 85025; 86704; 86705; 87081; 87340; 87811; 99285; A6250; J1200; J1630; J2060